=== PATIENT | female | born 1990 | race American Indian/Alaskan Native ===

== ENCOUNTER 2016-08-19 00:45 | Emergency (ER) | payer SELFPAY ==
[2016-08-19 01:12] VITALS: BP 130/89
== END 2016-08-19 05:40 | disposition left against medical advice (07) ==
LOC: ED 00:45
DX: T78.40XA Allergy, unspecified, initial encounter (principal); Z53.21 Procedure and treatment not carried out due to patient leaving prior to being seen by health care provider

== ENCOUNTER 2018-01-31 07:59 | Emergency (ER) | payer OTHER ==
[2018-01-31 09:08] VITALS: BP 128/78
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
[2018-01-31] MEDS ORDERED: TYLENOL PO ONE (11:06)
[2018-01-31 12:20] LABS: HCG Qualitative,Urine Negative (Negative)
--- NOTE | 2018-01-31 15:00 | Cat Scan Report ---
CT HEAD WITHOUT CONTRAST: HISTORY: Trauma, headache. TECHNIQUE: Sequential 2.5mm CT images. COMPARISON: none. FINDINGS: Cerebral Parenchyma: Within normal limits. Cerebellum: Within normal limits. Brainstem: Within normal limits. Ventricles: Normal. Sella: Normal. Extra-axial spaces: Normal. Basal Cisterns: Normal. Intracranial Hemorrhage: None. Midline Shift: None. Calvarium: Normal. Sinuses: Normal. Mastoid Air Cells: Normal. Visualized Orbits: Normal. IMPRESSION: Cranial CT scan within normal limits.
== END 2018-01-31 15:14 | disposition home or self-care (01) ==
LOC: ED 07:59
DX: S09.90XA Unspecified injury of head, initial encounter (principal); V89.2XXA Person injured in unspecified motor-vehicle accident, traffic, initial encounter; Y93.89 Activity, other specified; Y92.411 Interstate highway as the place of occurrence of the external cause; Y99.8 Other external cause status
CPT/HCPCS: 70450; 81025; 99284

== ENCOUNTER 2018-05-18 10:29 | Emergency (ER) | payer SELFPAY ==
--- NOTE | 2018-05-18 11:47 | Emergency Department Report ---
ED Female HPI - General Chief complaint: Vaginal Bleeding Stated complaint: /SPOTTING Time Seen by Provider: 05/18/18 11:22 Source: patient Mode of arrival: Ambulatory Limitations: No Limitations - History of Present Illness Initial comments: 27-year-old 003 who returns to the ED for a period level seen 3 days ago here in the ED stated that she saw some spotting vaginally that started today. Patient states because she has not followed up with [employer] as refers she return to the ED. She denies abdominal pelvic pain. She denies bright heavy vaginal bleeding 6 weeks spotting and seen when wiped. Complaint: vaginal bleeding - Related Data Previous Rx's Medication Instructions Recorded Last Taken Type Ondansetron [Zofran] 4 mg PO Q6HR PRN #12 tablet 08/27/13 Unknown Rx traMADol [Ultram 50 MG tab] 50 mg PO Q4HR PRN #12 tablet 08/27/13 Unknown Rx Amoxicillin [Trimox CAP] 500 mg PO Q8H #30 capsule 10/19/15 Unknown Rx Ibuprofen 600 mg PO TID PRN #30 tablet 01/31/18 Unknown Rx Vit-Fe Fumar-FA [ 1 tab PO QDAY #30 tablet 05/13/18 Unknown Rx Vitamin] Acetaminophen/Codeine [Tylenol 1 tab PO Q6H #10 tab 05/18/18 Unknown Rx /Codeine # 3 tab] Allergies Allergy/AdvReac Type Severity Reaction Status Date / Time No Known Allergies Allergy Verified 10/18/15 21:04 ED Review of Systems ROS: Stated complaint: /SPOTTING Other details as noted in HPI Constitutional: denies: chills, fever Eyes: denies: eye pain, eye discharge, vision change ENT: denies: ear pain, throat pain Respiratory: denies: cough, shortness of breath, wheezing Cardiovascular: denies: chest pain, palpitations Endocrine: no symptoms reported Gastrointestinal: denies: abdominal pain, nausea, diarrhea Genitourinary: denies: urgency, dysuria, discharge Musculoskeletal: denies: back pain, joint swelling, arthralgia Skin: denies: rash, lesions Neurological: denies: headache, weakness, paresthesias Psychiatric: denies: anxiety, depression Hematological/Lymphatic: denies: easy bleeding, easy bruising ED Past Medical Hx - Past Medical History Hx Hypertension: No Hx Congestive Heart Failure: No Hx Diabetes: No Hx Deep Vein Thrombosis: No Hx Renal Disease: No Hx Sickle Cell Disease: No Hx Seizures: No Hx Asthma: No Hx COPD: No Hx HIV: No Additional medical history: "low iron"-with - Surgical History Past Surgical History?: No - Social History Smoking Status: Never Smoker Substance Use Type: None - Medications Home Medications: Home Medications Medication Instructions Recorded Confirmed Last Taken Type Ondansetron [Zofran] 4 mg PO Q6HR PRN #12 tablet 08/27/13 Unknown Rx traMADol [Ultram 50 MG tab] 50 mg PO Q4HR PRN #12 tablet 08/27/13 Unknown Rx Amoxicillin [Trimox CAP] 500 mg PO Q8H #30 capsule 10/19/15 Unknown Rx Ibuprofen 600 mg PO TID PRN #30 tablet 01/31/18 Unknown Rx Vit-Fe Fumar-FA [ 1 tab PO QDAY #30 tablet 05/13/18 Unknown Rx Vitamin] Acetaminophen/Codeine [Tylenol 1 tab PO Q6H #10 tab 05/18/18 Unknown Rx /Codeine # 3 tab] ED Physical Exam - General Limitations: No Limitations General appearance: alert, in no apparent distress - Head Head exam: Present: atraumatic, normocephalic - Eye Eye exam: Present: normal appearance - ENT ENT exam: Present: mucous membranes moist - Neck Neck exam: Present: normal inspection - Respiratory Respiratory exam: Present: normal lung sounds bilaterally. Absent: respiratory distress - Cardiovascular Cardiovascular Exam: Present: regular rate, normal rhythm. Absent: systolic murmur, diastolic murmur, rubs, gallop - GI/Abdominal GI/Abdominal exam: Present: soft, normal bowel sounds - Extremities Exam Extremities exam: Present: normal inspection - Back Exam Back exam: Present: normal inspection - Neurological Exam Neurological exam: Present: alert, oriented X3 - Psychiatric Psychiatric exam: Present: normal affect, normal mood - Skin Skin exam: Present: warm, dry, intact, normal color. Absent: rash ED Course Vital Signs 05/18/18 05/18/18 05/18/18 10:49 14:47 19:25 Temperature 98 F 98.5 F Pulse Rate 77 89 Respiratory 18 18 16 Rate Blood Pressure 120/80 Blood Pressure 117/79 [Left] O2 Sat by Pulse 100 99 99 Oximetry 01/02/19 19:26 Temperature Pulse Rate Respiratory 15 Rate Blood Pressure Blood Pressure [Left] O2 Sat by Pulse Oximetry ED Medical Decision Making - Lab Data Result diagrams: 05/18/18 20:01 - Radiology Data Radiology results: report reviewed, image reviewed FINAL REPORT EXAM: US OB TRANSVAGINAL HISTORY: vag bleeding COMPARISON: None. TECHNIQUE: Transvaginal obstetric ultrasound was performed FINDINGS: The uterus measures 11.7 x 5.6 x 8 centimeters. There is a single live intrauterine with crown-rump length of 0.23 centimeters, corresponding to a gestational age of 5 weeks, 5 days, with estimated date of delivery of 01/13/2019. heart rate is somewhat low at 85 beats per minute. The right ovary measures 4 x 1.8 x 2.7 centimeters and is normal in morphology. The left ovary measures 3.3 x 1.8 x 2.1 centimeters. There is a heterogeneous 1.4 x 1 x 1.4 centimeter complex cystic area that may represent a corpus luteum cyst. IMPRESSION: Single live intrauterine with gestational age by ultrasound of 5 weeks, 5 days, with estimated date of delivery of 01/13/2019. heart rate is somewhat low at 85 beats per minute. Recommend clinical correlation and ultrasound follow-up as clinically indicated. Likely corpus luteum cyst within the left ovary. Transcribed By: LUKE Dictated By: JACQUELINE PÉREZ MD Electronically Authenticated By: JACQUELINE PÉREZ MD Signed Date/Time: 05/18/18 5338 - Medical Decision Making 27-year-old female presents with a inevitable . Patient's last quantitative level was 30,001 4 days ago, today her level is 20,500. CBC, type and screen ordered. Initially based on last menstrual period of February patient should be measuring about 11 weeks. Patient did state that she had had 2 ultrasounds a week apart that shows 6 weeks gestation with no heartbeat. Today's ultrasound shows as reported above Dr. Cesar contacted regarding this patient. Dr. Cesar states outpatient follow-up at her office. Discussed with patient to return back to the ED if vaginal bleeding occurs that she should return to ED immediately. Patient understands all instructions given. Patient will follow-up with Dr. Cesar's office tomorrow. Critical care attestation.: If time is entered above; I have spent that time in minutes in the direct care of this critically ill patient, excluding procedure time. ED Disposition Clinical Impression: Inevitable spontaneous Disposition: DC-01 TO HOME OR SELFCARE Is pt being admited?: No Does the pt Need Aspirin: No Condition: Stable Instructions: Spontaneous Miscarriage (ED) Additional Instructions: Make sure to follow up with the [employer] Dr. Cesar as discussed. If you start bleeding profusely please return to the ED immediately. If you have any worsening symptoms or develop new symptoms please return to ED immediately. Prescriptions: Acetaminophen/Codeine [Tylenol /Codeine # 3 tab] 1 tab PO Q6H #10 tab Referrals: PRIMARY CAREMD [Primary Care Provider] - 3-5 Days [facility] [Staff Physician] - 3-5 Days Forms: Work/School Release Form(ED) Time of Disposition: 18:39
[2018-05-18 12:12] LABS: Bacteria,Urine 1+ /HPF (Negative); Bilirubin,Urine NEG (Negative); Blood,Urine MOD (Negative); Color,Urine Yellow (Yellow); Mucus,Urine 2+ /HPF; Protein,Urine <15 mg/dL mg/dL (Negative); Urobilinogen,Urine < 2.0 mg/dL (<2.0)
--- NOTE | 2018-05-18 16:38 | Ultrasound Report ---
FINAL REPORT EXAM: US OB TRANSVAGINAL HISTORY: vag bleeding COMPARISON: None. TECHNIQUE: Transvaginal obstetric ultrasound was performed FINDINGS: The uterus measures 11.7 x 5.6 x 8 centimeters. There is a single live intrauterine with crown-rump length of 0.23 centimeters, correspondi ng to a gestational age of 5 weeks, 5 days, with estimated date of delivery of 01/13/2019. heart rate is somewhat low at 85 beats per minute. The right ovary measures 4 x 1.8 x 2.7 centimeters and is normal in morphology. The left ovary measures 3.3 x 1.8 x 2.1 centimeters. There is a heterogeneous 1.4 x 1 x 1.4 centimete r complex cystic area that may represent a corpus luteum cyst. IMPRESSION: Single live intrauterine with gestational age by ultrasound of 5 weeks, 5 days, with estima hortencia date of delivery of 01/13/2019. heart rate is somewhat low at 85 beats per minute. Recommend clinical correlation and ultrasoun d follow-up as clinically indicated. Likely corpus luteum cyst within the left ovary.
--- NOTE | 2018-05-18 16:40 | Ultrasound Report ---
FINAL REPORT EXAM: US OB <= 14 WEEKS FETUS HISTORY: vag bleeding COMPARISON: None. TECHNIQUE: Transabdominal obstetric imaging was performed. FINDINGS: The uterus measures 11.7 x 5.6 x 8 centimeters. There is a single live intrauterine with crown-rump length of 0.23 centimeters, correspondi ng to a gestational age of 5 weeks, 5 days, with estimated date of delivery of 01/13/2019. heart rate is somewhat low at 85 beats per minute. The right ovary measures 4 x 1.8 x 2.7 centimeters and is normal in morphology. The left ovary measures 3.3 x 1.8 x 2.1 centimeters. There is a heterogeneous 1.4 x 1 x 1.4 centimete r complex cystic area that may represent a corpus luteum cyst. IMPRESSION: Single live intrauterine with gestational age by ultrasound of 5 weeks, 5 days, with estima hortencia date of delivery of 01/13/2019. heart rate is somewhat low at 85 beats per minute. Recommend clinical correlation and ultrasoun d follow-up as clinically indicated. Likely corpus luteum cyst within the left ovary.
[2018-05-18 19:26] VITALS: BP 117/79
[2018-05-18 20:16] LABS: Hematocrit 34.5 % (30.3-42.9); Hemoglobin 11.4 gm/dl (10.1-14.3); Mean Corpuscular HGB Conc 33 % (30-34); Mean Corpuscular Volume 90 fl (79-97); Platelet Count 261 K/mm3 (140-440); Red Blood Count 3.84 M/mm3 (3.65-5.03)
== END 2018-05-18 20:13 | disposition home or self-care (01) ==
LOC: ED 10:29
DX: O03.9 Complete or unspecified spontaneous abortion without complication (principal); Z3A.01 Less than 8 weeks gestation of pregnancy
CPT/HCPCS: 36415; 76801; 76817; 81001; 84702; 85027; 86850; 86900; 86901

== ENCOUNTER 2018-05-22 21:14 | Inpatient (IN) | payer SELFPAY ==
[2018-05-22 22:18] LABS: Basophils % (Auto) 0.3 % (0.0-1.8); Eosinophils # (Auto) 0.2 K/mm3 (0.0-0.4); Eosinophils % (Auto) 1.7 % (0.0-4.3); Hematocrit 33.3 % (30.3-42.9); Hemoglobin 11.1 gm/dl (10.1-14.3); Lymphocytes # (Auto) 2.8 K/mm3 (1.2-5.4); Lymphocytes % (Auto) 30.5 % (13.4-35.0); Mean Corpuscular HGB Conc 33 % (30-34); Mean Corpuscular Volume 90 fl (79-97); Monocytes # (Auto) 0.5 K/mm3 (0.0-0.8); Monocytes % (Auto) 5.9 % (0.0-7.3); Platelet Count 287 K/mm3 (140-440); Red Blood Count 3.71 M/mm3 (3.65-5.03); Red Cell Distribution Width 14.2 % (13.2-15.2)
[2018-05-22] MEDS ORDERED: NACL 0.9% 1000 ML 1,000 ML IV ONE (22:31)
[2018-05-22] MEDS ORDERED: MORPHINE IV ONE (22:32)
--- NOTE | 2018-05-22 22:33 | Emergency Department Report ---
ED Female HPI - General Chief complaint: Vaginal Bleeding Stated complaint: MISCARRIAGE Time Seen by Provider: 05/22/18 22:08 Source: patient Mode of arrival: Wheelchair Limitations: No Limitations - History of Present Illness Initial comments: This is a 27-year-old female who returns to the ED currently complaining of vaginal bleeding that started earlier today. Patient was seen here 5 days ago for inevitable . Patient states she is evidently miscarried she started bleeding today. She admits abdominal lower pelvic cramping. Patient states that she was not able to follow up with [employer] yet. MD Complaint: vaginal bleeding - Related Data Previous Rx's Medication Instructions Recorded Last Taken Type Vit-Fe Fumar-FA [ 1 tab PO QDAY #30 tablet 05/13/18 Unknown Rx Vitamin] Allergies Allergy/AdvReac Type Severity Reaction Status Date / Time No Known Allergies Allergy Verified 10/18/15 21:04 ED Review of Systems ROS: Stated complaint: MISCARRIAGE Other details as noted in HPI ED Past Medical Hx - Past Medical History Previous Medical History?: Yes Hx Hypertension: No Hx Congestive Heart Failure: No Hx Diabetes: No Hx Deep Vein Thrombosis: No Hx Renal Disease: No Hx Sickle Cell Disease: No Hx Seizures: No Hx Asthma: No Hx COPD: No Hx HIV: No Additional medical history: "low iron"-with - Surgical History Past Surgical History?: No - Social History Smoking Status: Never Smoker Substance Use Type: None - Medications Home Medications: Home Medications Medication Instructions Recorded Confirmed Last Taken Type Vit-Fe Fumar-FA [ 1 tab PO QDAY #30 tablet 05/13/18 05/23/18 Unknown Rx Vitamin] ED Physical Exam - General Limitations: No Limitations General appearance: alert, in no apparent distress - Head Head exam: Present: atraumatic, normocephalic - Eye Eye exam: Present: normal appearance - ENT ENT exam: Present: mucous membranes moist - Neck Neck exam: Present: normal inspection - Respiratory Respiratory exam: Present: normal lung sounds bilaterally. Absent: respiratory distress - Cardiovascular Cardiovascular Exam: Present: regular rate, normal rhythm. Absent: systolic murmur, diastolic murmur, rubs, gallop - GI/Abdominal GI/Abdominal exam: Present: soft, tenderness, normal bowel sounds. Absent: distended, guarding, rebound, rigid, mass (pelvic region) - External exam: Present: bleeding. Absent: erythema, swelling, lesions Speculum exam: Present: vaginal bleeding, tissue - Extremities Exam Extremities exam: Present: normal inspection - Back Exam Back exam: Present: normal inspection - Neurological Exam Neurological exam: Present: alert, oriented X3 - Psychiatric Psychiatric exam: Present: normal affect, normal mood - Skin Skin exam: Present: warm, dry, intact, normal color. Absent: rash ED Course Vital Signs 05/22/18 05/22/18 05/22/18 21:40 23:25 23:36 Temperature 98.4 F Pulse Rate 98 H 78 Respiratory 20 20 20 Rate Blood Pressure 127/85 Blood Pressure 110/73 [Left] O2 Sat by Pulse 100 100 Oximetry 05/22/18 05/23/18 05/23/18 23:40 00:06 01:00 Temperature Pulse Rate 78 Respiratory 20 20 20 Rate Blood Pressure Blood Pressure 92/50 [Left] O2 Sat by Pulse 100 100 Oximetry 05/23/18 05/23/18 05/23/18 01:04 02:00 03:04 Temperature 97.1 F L Pulse Rate 80 113 H Respiratory 20 20 12 Rate Blood Pressure 125/58 Blood Pressure 107/63 [Left] O2 Sat by Pulse 100 100 Oximetry 05/23/18 05/23/18 05/23/18 03:09 03:14 03:19 Temperature Pulse Rate 93 H 90 86 Respiratory 12 13 17 Rate Blood Pressure 114/62 124/68 122/73 Blood Pressure [Left] O2 Sat by Pulse 100 100 100 Oximetry 05/23/18 03:34 Temperature 97.8 F Pulse Rate 88 Respiratory 18 Rate Blood Pressure 115/66 Blood Pressure [Left] O2 Sat by Pulse 100 Oximetry - Reevaluation(s) Reevaluation #1: Patient receiving 2 mg of morphine, 1 L of normal saline. She reports Dermol. Patient has been monitored. She is stable. [employer] Dr. Jack Whatley is paged and consulted 05/23/18 00:36 Reevaluation #2: 05/23/18 02:08 Patient was taken to the OR for dilation and curettage. Patient was stable when she left the ER. - Consultations Consultation #1: Dr. Whatley [employer] is currently evaluating patient. 05/23/18 01:07 05/23/18 01:07 ED Medical Decision Making - Lab Data Result diagrams: 05/22/18 21:55 Critical care attestation.: If time is entered above; I have spent that time in minutes in the direct care of this critically ill patient, excluding procedure time. ED Disposition Clinical Impression: Spontaneous Disposition: DC/TX- [id number] GEN HOSP IP Is pt being admited?: No Does the pt Need Aspirin: No Condition: Stable
[2018-05-22] MEDS ORDERED: ZOFRAN IV ONE (23:27)
[2018-05-22] MEDS ORDERED: ZOFRAN ONE (23:31)
[2018-05-23 00:04] LABS: Bilirubin,Urine NEG (Negative); Blood,Urine LG (Negative); Color,Urine Yellow (Yellow); Mucus,Urine 1+ /HPF; Urobilinogen,Urine < 2.0 mg/dL (<2.0)
[2018-05-23 00:07] LABS: RBC,Urine > 182.0 /HPF (0.0-6.0)
[2018-05-23] MEDS ORDERED: MORPHINE IV ONE (00:43)
[2018-05-23] MEDS ORDERED: NACL 0.9% 1000 ML 1,000 ML IV ONE (01:03)
--- NOTE | 2018-05-23 01:17 | Short Stay Summary ---
Short Stay Documentation Date of service: 05/23/18 Narrative H&P: This is a 27-year-old black female LMP 02/28/18 who returns to the ED currently complaining of heavy vaginal bleeding that started earlier today. She was seen here 5 days ago for inevitable , and is evidently miscarrying now. She admits pelvic cramping. Patient states that she was not able to follow up with [facility] yet. Her H/H is 11.1/33.3 but will need an immediate D&C. - History Principal diagnosis: Incomplete H&P: obtained from office Past Medical History: No medical history Past Surgical History: No surgical history Social history: no significant social history, single - Allergies and Medications Current Medications: Allergies No Known Allergies Allergy (Verified 10/18/15 21:04) Home Medications Medication Instructions Recorded Confirmed Last Taken Type Ondansetron [Zofran] 4 mg PO Q6HR PRN #12 tablet 08/27/13 Unknown Rx traMADol [Ultram 50 MG tab] 50 mg PO Q4HR PRN #12 tablet 08/27/13 Unknown Rx Amoxicillin [Trimox CAP] 500 mg PO Q8H #30 capsule 10/19/15 Unknown Rx Ibuprofen 600 mg PO TID PRN #30 tablet 01/31/18 Unknown Rx Vit-Fe Fumar-FA [ 1 tab PO QDAY #30 tablet 05/13/18 Unknown Rx Vitamin] Acetaminophen/Codeine [Tylenol 1 tab PO Q6H #10 tab 05/18/18 Unknown Rx /Codeine # 3 tab] Active Medications Sodium Chloride (Nacl 0.9% 1000 Ml) 1,000 mls @ 999 mls/hr IV BOLUS ONE Stop: 05/23/18 02:03 - Physical exam General appearance: mild distress Integumentary: no rash HEENT: Atraumatic Lungs: Clear to auscultation Heart: Regular rate Gastrointestinal: normal Female Genitourinary: masses, other (heavy bleeding) Extremities: no ischemia Neurological: Normal speech - Brief post op/procedure progress note Date of procedure: 05/23/18 Pre-op diagnosis: Incomplete Post-op diagnosis: same Procedure: D&C Anesthesia: GETA Findings: An 8-10 week size uterus scant amounts of problems of conception. Surgeon: YOKO RUFFIN Estimated blood loss: minimal (300mls in the ER) Pathology: list (POC) Specimen disposition: to lab Condition: stable - Hospital course Hospital course: Unremarkable. Post Op H/H was 7.8/23.5 and bleeding has resolved. - Disposition Condition at discharge: Good Disposition: DC-01 TO HOME OR SELFCARE - Discharge Diagnoses (1) Incomplete Status: Resolved Short Stay Discharge Plan Activity: no restrictions Diet: regular Follow up with: PRIMARY CAREMD [Primary Care Provider] - 3-5 Days YOKO RUFFIN MD [Staff Physician] - 14 Days VIOLET CESAR [Staff Physician] - 14 Days Prescriptions: Ferrous Sulfate [Feosol 325 MG tab] 325 mg PO BID #60 tablet Ibuprofen [Motrin 600 MG tab] 600 mg PO Q6HR #30 tablet Methylergonovine [Methergine] 0.2 mg PO Q8HR #6 tablet
[2018-05-23] MEDS ORDERED: DIPRIVAN 10 MG/ML IV ONE (01:48)
[2018-05-23] MEDS ORDERED: SUBLIMAZE ONE (01:49)
--- NOTE | 2018-05-23 01:51 | Anesthesia Consultation ---
Anesthesia Consult and Med Hx - Airway Anesthetic Teeth Evaluation: Good ROM Head & Neck: Adequate Mental/Hyoid Distance: Adequate Mallampati Class: Class II Intubation Access Assessment: Probably Good - Pulmonary Exam CTA: Yes - Cardiac Exam Cardiac Exam: No Murmur - Pre-Operative Health Status ASA Pre-Surgery Classification: ASA2, Emergency Proposed Anesthetic Plan: General - Pulmonary Hx Smoking: No Hx Asthma: No Hx Respiratory Symptoms: No SOB: No COPD: No Home Oxygen Therapy: No Hx Pneumonia: No Hx Sleep Apnea: No - Cardiovascular System Hx Hypertension: No Hx Coronary Artery Disease: No Hx Heart Attack/AMI: No Hx Angina: No Hx Percutaneous Transluminal Coronary Angioplasty (PTCA): No Hx Cardia Arrhythmia: No Hx Pacemaker: No Hx Internal Defibrillator: No Hx Valvular Heart Disease: No Hx Heart Murmur: No Hx Peripheral Vascular Disease: No - Central Nervous System Hx Neuromuscular Disorder: No Hx Seizures: No CVA: No Hx Back Pain: No Hx Psychiatric Problems: No - Gastrointestinal Hx Ulcer: No Hx Gastroesophageal Reflux Disease: No - Endocrine Hx Renal Disease: No Hx End Stage Renal Disease: No Hx Cirrhosis: No Hx Liver Disease: No Hx Insulin Dependent Diabetes: No Hx Non-Insulin Dependent Diabetes: No Hx Thyroid Disease: No Hx Hypothyroidism: No Hx Hyperthyroidism: No - Hematic Hx Anemia: No Hx Sickle Cell Disease: No - Other Systems Hx Alcohol Use: No Hx Substance Use: No Hx Cancer: No Hx Obesity: No
--- NOTE | 2018-05-23 01:52 | Anesthesia Day of Surgery ---
Anesthesia Day of Surgery - Day of Surgery Patient Examined: Yes Patient H&P Reviewed: Yes Patient is NPO: No (food at 1930, sip of lemonade at 0100) Beta Blockers: No Cardiac Clearance: No Pulmonary Clearance: No Chandler's Test: N/A
[2018-05-23] MEDS ORDERED: PHENERGAN PR PRN ×2 (01:53→04:57)
[2018-05-23] MEDS ORDERED: MORPHINE IV PRN (01:53)
[2018-05-23] MEDS ORDERED: XYLOCAINE MPF 2% ONE (01:59)
[2018-05-23] MEDS ORDERED: QUELICIN ONE (01:59)
[2018-05-23] MEDS ORDERED: ZOFRAN ONE (01:59)
[2018-05-23] MEDS ORDERED: DECADRON ONE (01:59)
[2018-05-23] MEDS ORDERED: ANCEF/STERILE WATER 2 GM/20 ML 2 GM/20 ML SYRINGE IV NR (02:00)
[2018-05-23] MEDS ORDERED: NACL 0.9% 1000 ML 1,000 ML ONE (02:24)
[2018-05-23] MEDS ORDERED: VERSED ONE (02:26)
[2018-05-23] MEDS ORDERED: TORADOL ONE (02:52)
--- NOTE | 2018-05-23 02:55 | Operative Report ---
Operative Report Operative Report: PREOPERATIVE DIAGNOSIS: Incomplete POSTOPERATIVE DIAGNOSIS: Same OPERATIVE PROCEDURE: Dilatation and curettage. SURGEON: Jack Whatlye MD ANESTHESIA: Gen. endotracheal intubation ANESTHESIOLOGIST: Dr. Garcia ESTIMATED BLOOD LOSS: 50 mL's FINDINGS: An 8-10 week size uterus with scant amounts of products of conception COMPLICATIONS: None COUNTS: Correct x3. PROCEDURE: After the patient was correctly identified as the patient, and after general anesthesia was administered, the patient was prepped and draped in the usual sterile fashion and placed in dorsal lithotomy position. First, the bladder was emptied using a straight catheter. Next, a speculum was placed in the vaginal vault and the anterior lip of the cervix was grasped using a single- tooth tenaculum. The uterus was sounded to 10 cm. The cervical os was sequentially dilated, and a 10 mm vaccurette was used to suction blood and products of conception from the uterine cavity. After all the products of conception were removed, the procedure was considered complete. All instruments were removed from the vagina. The patient tolerated the procedure well and was transferred to the recovery room in stable condition.
[2018-05-23] MEDS ORDERED: LACTATED RINGERS 1,000 ML ONE (03:31)
[2018-05-23] MEDS ORDERED: BENADRYL PO PRN (04:57)
[2018-05-23] MEDS ORDERED: NORCO 5/325 PO PRN (04:57)
[2018-05-23] MEDS ORDERED: MILK OF MAGNESIA PO PRN (04:57)
[2018-05-23] MEDS ORDERED: ZOFRAN IV PRN (04:57)
[2018-05-23] MEDS ORDERED: PHENERGAN PO PRN (04:57)
[2018-05-23] MEDS ORDERED: DULCOLAX PR PRN (04:57)
[2018-05-23] MEDS ORDERED: TYLENOL PO PRN (04:57)
[2018-05-23] MEDS ORDERED: SODIUM CHLORIDE FLUSH SYRINGE 10 ML IV PRN (04:57)
[2018-05-23] MEDS: IBUPROFEN PO SCH ×2 (05:47→16:35)
[2018-05-23] MEDS: METHERGINE PO SCH ×2 (06:10→16:41)
[2018-05-23] MEDS: FEOSOL PO SCH ×2 (09:08→21:23)
[2018-05-23 09:29] LABS: Hematocrit 23.5 % (30.3-42.9); Hemoglobin 7.8 gm/dl (10.1-14.3)
[2018-05-23] MEDS ORDERED: DILAUDID IV PRN (11:24)
[2018-05-23] MEDS ORDERED: LACTATED RINGERS 1,000 ML IV SCH (12:00)
[2018-05-23] MEDS ORDERED: VERSED IV NR (12:00)
--- NOTE | 2018-05-23 14:24 | Post Anesthesia Evaluation ---
- Post Anesthesia Evaluation Patient Participated: Yes Airway Patent: Yes Stable Respiratory Function: Yes Nausea/Vomiting: No Temp > 96.8F: Yes Pain Manageable: Yes Adequeate Hydration: Yes Anesthesia Complications: No
[2018-05-23] MEDS ORDERED: NACL 0.9% 500 ML 500 ML IV NR (16:59)
[2018-05-23] MEDS ORDERED: TYLENOL PO ONE (17:00)
[2018-05-23] MEDS ORDERED: BENADRYL IV ONE (17:00)
[2018-05-23] MEDS ORDERED: NACL 0.9% 500 ML 500 ML IV SCH (21:30)
[2018-05-24] MEDS: IBUPROFEN PO SCH ×3 (00:31→11:55)
[2018-05-24 05:50] LABS: Hematocrit 23.1 % (30.3-42.9); Hemoglobin 7.7 gm/dl (10.1-14.3)
[2018-05-24] MEDS: METHERGINE PO SCH ×2 (05:59)
[2018-05-24] MEDS: FEOSOL PO SCH (11:55)
[2018-05-24 11:58] VITALS: BP 99/49
== END 2018-05-24 13:30 | disposition home or self-care (01) | DRG 770 ==
LOC: ED 21:14 → OB 05-23 03:10
PROVIDERS: ADMIT Obstetrics & Gynecology; ATTEND Obstetrics & Gynecology
PROC: 10D17ZZ Extraction of Products of Conception, Retained, Via Natural or Artificial Opening (ICD-10-PCS; principal; 2018-05-23)
PROC: 30233N1 Transfusion of Nonautologous Red Blood Cells into Peripheral Vein, Percutaneous Approach (ICD-10-PCS; 2018-05-23)
DX: O03.4 Incomplete spontaneous abortion without complication (principal)
CPT/HCPCS: 36415; 36430; 81001; 84703; 85014; 85018; 85025; 86850; 86900; 86901; 86920; 88305; 96361; 96374; 96375; G0378; J0330; J1100; J1200; J1885; J2250; J2270; J2405; J2704; J3010; J7030; J7040; J7120; P9016

== ENCOUNTER 2018-10-17 20:53 | Emergency (ER) | payer SELFPAY ==
[2018-10-17 21:21] VITALS: BP 131/86
--- NOTE | 2018-10-17 21:53 | Emergency Department Report ---
Blank Doc - Documentation Documentation: This is a 28-year-old female that presents with left earache. Exam: Ear has cerumen impaction to left ear. Unable to visualize TM. This initial assessment/diagnostic orders/clinical plan/treatment(s) is/are subject to change based on patient's health status, clinical progression and re- assessment by fellow clinical providers in the ED. Further treatment and workup at subsequent clinical providers discretion. Patient/guardians urged not to elope from the ED as their condition may be serious if not clinically assessed and managed. Initial orders include: 1- Patient sent to [facility] for further evaluation and treatment
== END 2018-10-18 00:15 | disposition left against medical advice (07) ==
LOC: ED 20:53
DX: H92.03 Otalgia, bilateral (principal); Z53.21 Procedure and treatment not carried out due to patient leaving prior to being seen by health care provider

== ENCOUNTER 2019-01-17 12:48 | Emergency (ER) | payer OTHER ==
--- NOTE | 2019-01-17 14:08 | XRay Report ---
RIGHT ELBOW, 3 VIEWS INDICATION: Right elbow pain. COMPARISON: None. IMPRESSION: A large anterior and posterior joint effusion is identified at the right elbow. Bone mi neralization is normal. No acute osseous abnormality or joint pathology is identified. The large join t effusion could indicate internal derangement or occult fracture. Please correlate with the patient and consider further imaging. RIGHT HAND, 3 VIEWS INDICATION: right hand pain. COMPARISON: None. IMPRESSION: No acute osseous or soft tissue abnormality. No significant DJD. Signer Name: Jack Cummings Jr, MD Signed: 01/17/2019 2:03 PM Workstation Name: [id number]
[2019-01-17] MEDS ORDERED: NORCO 5/325 PO ONE (15:06)
--- NOTE | 2019-01-17 16:06 | XRay Report ---
SACRUM AND COCCYX, 3 VIEWS INDICATION: fall, sacral pain. COMPARISON: None. IMPRESSION: No acute osseous or soft tissue abnormality. Normal bone mineralization. The SI joint s are symmetric and unremarkable. Signer Name: Jack Cummings Jr, MD Signed: 01/17/2019 4:02 PM Workstation Name: [id number]
--- NOTE | 2019-01-17 16:38 | Emergency Department Report ---
HPI - General Chief Complaint: Extremity Injury, Upper Time Seen by Provider: 01/17/19 14:01 - HPI HPI: 28-year-old female presents to the emergency department with complaint of pain to the right arm, from the elbow to the hand, as well as some pain to the lower back/sacral area. This occurred after the patient slipped on one of her child's toys and fell onto her back and right arm onto some concrete. She denies hitting her head or any loss of consciousness. She tried some ibuprofen for her symptoms without any relief. No significant past medical history. ED Past Medical Hx - Past Medical History Previous Medical History?: Yes Hx Hypertension: No Hx Heart Attack/AMI: No Hx Congestive Heart Failure: No Hx Diabetes: No Hx Deep Vein Thrombosis: No Hx Liver Disease: No Hx Renal Disease: No Hx Sickle Cell Disease: No Hx Seizures: No Hx Asthma: No Hx COPD: No Hx HIV: No Additional medical history: "low iron"-with - Surgical History Past Surgical History?: Yes Hx Pacemaker: No Hx Internal Defibrillator: No - Social History Smoking Status: Current Some Day Smoker Substance Use Type: None - Medications Home Medications: Home Medications Medication Instructions Recorded Confirmed Last Taken Type Vit-Fe Fumar-FA [ 1 tab PO QDAY #30 tablet 05/13/18 05/23/18 Unknown Rx Vitamin] Ferrous Sulfate [Feosol 325 MG tab] 325 mg PO BID #60 tablet 05/23/18 Unknown Rx Ibuprofen [Motrin 600 MG tab] 600 mg PO Q6HR #30 tablet 05/23/18 Unknown Rx Methylergonovine [Methergine] 0.2 mg PO Q8HR #6 tablet 05/23/18 Unknown Rx HYDROcodone/APAP 5-325 [[place] 1 each PO Q6HR PRN #10 tablet 01/17/19 Unknown Rx 5/325] ED Review of Systems ROS: Stated complaint: RT ARM INJURY Other details as noted in HPI Comment: All other systems reviewed and negative Constitutional: denies: chills, fever Respiratory: denies: cough, shortness of breath Cardiovascular: denies: chest pain, edema Gastrointestinal: denies: abdominal pain Musculoskeletal: back pain, arthralgia, myalgia Neurological: denies: headache, weakness, numbness, paresthesias Physical Exam - Physical Exam Vital Signs: Vital Signs 01/17/19 01/17/19 12:54 15:37 Temperature 98.3 F Pulse Rate 93 H Respiratory 18 17 Rate Blood Pressure 119/85 O2 Sat by Pulse 99 Oximetry Physical Exam: GENERAL: The patient is well-developed. HENT: Normocephalic. Atraumatic. Patient has moist mucous membranes. EYES: Extraocular motions are intact. Pupils equal reactive to light bilatera lly. NECK: Supple. Trachea is midline. CHEST/LUNGS: There is some mild wheezing heard with expiration. A dry cough heard during examination. No tachypnea or accessory muscle use. There is no respiratory distress noted. HEART/CARDIOVASCULAR: Regular. There is mild to moderate tachycardia. There is no murmur. ABDOMEN: Abdomen is soft, nontender. Patient has normal bowel sounds. There is no abdominal distention. SKIN: There is a large area of ecchymosis to the sacral back. NEURO: Awake, alert and oriented. CN II - XII grossly intact. No focal, motor or sensory deficits. MUSCULOSKELETAL: TTP to the right elbow down to the right hand, but no obvious deformity. BACK: No midline thoracic or lumbar TTP, step off or deformity. TTP to the sacral back. ED Course Vital Signs 01/17/19 01/17/19 12:54 15:37 Temperature 98.3 F Pulse Rate 93 H Respiratory 18 17 Rate Blood Pressure 119/85 O2 Sat by Pulse 99 Oximetry ED Medical Decision Making - Radiology Data Radiology results: image reviewed interpreted by me: XR of the hand, forearm, elbow and sacrum do not show any fractures, dislocations or any acute processes. - Medical Decision Making The patient presents with RUE and sacral back pain after slipping on a toy and falling onto her back and right UE. She has ecchymosis to the back. TTP to the RUE but no obvious deformities. Xrays done of all the affected areas and it does not show any fracture, dislocations or any acute processes. She denies hitting head or any LOC. She denies any problems with bowel or bladder, numbness or paresthesias, or any neurological defitis. Low suspicion for any of the emergent back conditions such as cauda equina or cord compression. Given ortho referral and told to see PCP. Will return to ED with any worsening of symptoms or any acute distress. - Differential Diagnosis fracture, muscle spasm, contusion, sprain/strain Critical care attestation.: If time is entered above; I have spent that time in minutes in the direct care of this critically ill patient, excluding procedure time. ED Disposition Clinical Impression: Right arm pain, Sacral back pain Fall Qualifiers: Encounter type: initial encounter Qualified Code(s): W19.XXXA - Unspecified fall, initial encounter Sacral contusion Qualifiers: Encounter type: initial encounter Qualified Code(s): S30.0XXA - Contusion of lower back and pelvis, initial encounter Disposition: TO HOME OR SELFCARE Is pt being admited?: No Condition: Stable Instructions: Contusion in Adults (ED), Arthralgia (ED), Fall Prevention (ED) Additional Instructions: Please follow-up with a primary care physician in the next few days. I'm giving you a referral for a local orthopedist, Dr. Barfield, to follow-up regarding your right upper extremity and low back pains. Return to the emergency Department with any worsening of your symptoms or any acute distress. You have been prescribed a medication that is sedating and therefore should not be taken prior to driving, working, and responsible for children and in no way should be mixed with alcohol of any quantity. Prescriptions: HYDROcodone/APAP 5-325 [[place] 5/325] 1 each PO Q6HR PRN #10 tablet PRN Reason: Pain Referrals: ZAINAB BARFIELD MD [Staff Physician] - 2-3 Days [facility] [Outside] - 2-3 Days Forms: Accompanied Note, Work/School Release Form(ED) Time of Disposition: 16:38
[2019-01-17 16:53] VITALS: BP 110/71
== END 2019-01-17 16:51 | disposition home or self-care (01) ==
LOC: ED 12:48
DX: S30.0XXA Contusion of lower back and pelvis, initial encounter (principal); M54.40 Lumbago with sciatica, unspecified side; M79.601 Pain in right arm; F17.200 Nicotine dependence, unspecified, uncomplicated; W01.198A Fall on same level from slipping, tripping and stumbling with subsequent striking against other object, initial encounter; Y93.89 Activity, other specified; Y92.89 Other specified places as the place of occurrence of the external cause; Y99.8 Other external cause status
CPT/HCPCS: 72220; 99284

== ENCOUNTER 2021-08-31 11:57 | Emergency (ER) | payer BC, OTHER ==
[2021-08-31 13:10] LABS: Bacteria,Urine 1+ /HPF (Negative); Bilirubin,Urine NEG (Negative); Blood,Urine NEG (Negative); Color,Urine Yellow (Yellow); Mucus,Urine FEW /HPF; Protein,Urine <15 mg/dL mg/dL (Negative); Urobilinogen,Urine < 2.0 mg/dL (<2.0)
[2021-08-31 13:12] LABS: HCG Qualitative,Urine Positive (Negative)
[2021-08-31] MEDS ORDERED: SODIUM CHLORIDE 0.9% 1000 ML 1,000 ML IV ONE (13:23)
[2021-08-31] MEDS ORDERED: METOCLOPRAMIDE 10 MG/2 ML INJ IV ONE (13:23)
[2021-08-31 15:12] LABS: Basophils % (Auto) 0.4 % (0.0-1.8); Eosinophils # (Auto) 0.1 K/mm3 (0.0-0.4); Eosinophils % (Auto) 0.8 % (0.0-4.3); Hematocrit 30.9 % (30.3-42.9); Hemoglobin 10.4 gm/dl (10.1-14.3); Lymphocytes % (Auto) 22.9 % (13.4-35.0); Mean Corpuscular HGB Conc 34 % (30-34); Mean Corpuscular Volume 92 fl (79-97); Monocytes # (Auto) 0.5 K/mm3 (0.0-0.8); Monocytes % (Auto) 6.1 % (0.0-7.3); Platelet Count 240 K/mm3 (140-440); Red Blood Count 3.35 M/mm3 (3.65-5.03); Red Cell Distribution Width 13.5 % (13.2-15.2)
--- NOTE | 2021-08-31 15:26 | Emergency Department Report ---
ED N/V/D HPI - General Chief complaint: Nausea/Vomiting/Diarrhea Stated complaint: 7 WEEKS PREG/VOMITING Time Seen by Provider: 08/31/21 13:17 Source: patient Mode of arrival: Ambulatory Limitations: No Limitations - History of Present Illness Initial comments: This is a 31-year-old female who is 7 weeks nontoxic, well nourished in appearance, no acute signs of distress presents to the ED with c/o of nausea and vomiting several days. Patient denies any vaginal bleeding. Denies any vaginal discharge. Patient describes vomiting as food content. Patient denies any abdominal pain, pelvic pain, chest pain, short of breath, fever, chills, headache, stiff neck, numbness or tingling. Patient denies any diarrhea or constipation. Denies any blood in stool. Patient denies any recent travels. Patient denies any drug allergies significant past medical history. MD complaint: nausea, vomiting -: days(s) Description of Vomiting: food contents Associated Abdominal Pain: No Pain Scale: 0 Improves with: none Worsens with: none Associated Symptoms: nausea/vomiting. denies: myalgias, chest pain, cough, diaphoresis, fever/chills, headaches, loss of appetite, malaise, rash, dysuria, shortness of breath, syncope, weakness - Related Data Previous Rx's Medication Instructions Recorded Last Taken Type Vit-Fe Fumar-FA [ 1 tab PO QDAY #30 tablet 05/13/18 Unknown Rx Vitamin] Ferrous Sulfate [Feosol 325 MG tab] 325 mg PO BID #60 tablet 05/23/18 Unknown Rx Ibuprofen [Motrin 600 MG tab] 600 mg PO Q6HR #30 tablet 05/23/18 Unknown Rx Methylergonovine [Methergine] 0.2 mg PO Q8HR #6 tablet 05/23/18 Unknown Rx HYDROcodone/APAP 5-325 [[place] 1 each PO Q6HR PRN #10 tablet 01/17/19 Unknown Rx 5/325] Metoclopramide [Reglan] 10 mg PO BID PRN #12 tab 08/31/21 Unknown Rx 21/Iron Fu/Folic Acid 1 each PO DAILY #30 tab 08/31/21 Unknown Rx [ Complete Caplet] Allergies Allergy/AdvReac Type Severity Reaction Status Date / Time No Known Allergies Allergy Verified 06/03/16 21:04 ED Review of Systems ROS: Stated complaint: 7 WEEKS PREG/VOMITING Other details as noted in HPI Comment: All other systems reviewed and negative Constitutional: denies: chills, fever Eyes: denies: eye pain, eye discharge, vision change ENT: denies: ear pain, throat pain Respiratory: denies: cough, shortness of breath, wheezing Cardiovascular: denies: chest pain, palpitations Endocrine: no symptoms reported Gastrointestinal: nausea, vomiting. denies: abdominal pain, diarrhea, cons tipation, hematemesis, melena, hematochezia Genitourinary: denies: urgency, dysuria, discharge Musculoskeletal: denies: back pain, joint swelling, arthralgia Skin: denies: rash, lesions Neurological: denies: headache, weakness, paresthesias Psychiatric: denies: anxiety, depression Hematological/Lymphatic: denies: easy bleeding, easy bruising ED Past Medical Hx - Past Medical History Hx Hypertension: No Hx Heart Attack/AMI: No Hx Congestive Heart Failure: No Hx Diabetes: No Hx Deep Vein Thrombosis: No Hx Liver Disease: No Hx Renal Disease: No Hx Sickle Cell Disease: No Hx Seizures: No Hx Asthma: No Hx COPD: No Hx HIV: No Additional medical history: "low iron"-with - Surgical History Hx Pacemaker: No Hx Internal Defibrillator: No - Social History Smoking Status: Current Some Day Smoker Substance Use Type: None - Medications Home Medications: Home Medications Medication Instructions Recorded Confirmed Last Taken Type Vit-Fe Fumar-FA [ 1 tab PO QDAY #30 tablet 05/13/18 05/23/18 Unknown Rx Vitamin] Ferrous Sulfate [Feosol 325 MG tab] 325 mg PO BID #60 tablet 05/23/18 Unknown Rx Ibuprofen [Motrin 600 MG tab] 600 mg PO Q6HR #30 tablet 05/23/18 Unknown Rx Methylergonovine [Methergine] 0.2 mg PO Q8HR #6 tablet 05/23/18 Unknown Rx HYDROcodone/APAP 5-325 [[place] 1 each PO Q6HR PRN #10 tablet 01/17/19 Unknown Rx 5/325] Metoclopramide [Reglan] 10 mg PO BID PRN #12 tab 08/31/21 Unknown Rx 21/Iron Fu/Folic Acid 1 each PO DAILY #30 tab 08/31/21 Unknown Rx [ Complete Caplet] ED Physical Exam - General Limitations: No Limitations General appearance: alert, in no apparent distress - Head Head exam: Present: atraumatic, normocephalic - Eye Eye exam: Present: normal appearance - Neck Neck exam: Present: normal inspection, full ROM. Absent: tenderness, meningismus, lymphadenopathy - Respiratory Respiratory exam: Present: normal lung sounds bilaterally. Absent: respiratory distress, wheezes, rales, rhonchi, stridor, chest wall tenderness, accessory muscle use, decreased breath sounds, prolonged expiratory - Cardiovascular Cardiovascular Exam: Present: regular rate, normal rhythm, normal heart sounds. Absent: bradycardia, tachycardia, irregular rhythm, systolic murmur, diastolic murmur, rubs, gallop - GI/Abdominal GI/Abdominal exam: Present: soft, normal bowel sounds. Absent: distended, tenderness, guarding, rebound, rigid, diminished bowel sounds - Extremities Exam Extremities exam: Present: full ROM - Back Exam Back exam: Present: normal inspection, full ROM. Absent: tenderness, CVA tenderness (R), CVA tenderness (L), muscle spasm, paraspinal tenderness, vertebral tenderness, rash noted - Neurological Exam Neurological exam: Present: alert, oriented X3, normal gait - Psychiatric Psychiatric exam: Present: normal affect, normal mood - Skin Skin exam: Present: warm, dry, intact, normal color. Absent: rash ED Course Vital Signs 08/31/21 12:12 Temperature 98.1 F Pulse Rate 68 Respiratory 16 Rate Blood Pressure 133/70 [Left] O2 Sat by Pulse 100 Oximetry - Reevaluation(s) Reevaluation #1: 08/31/21 15:25 Patient is speaking in full sentences with no signs of distress noted. ED Medical Decision Making - Lab Data Result diagrams: 08/31/21 14:32 08/31/21 14:32 - Radiology Data Lab Results 08/31/21 08/31/21 08/31/21 Range/Units 12:32 14:32 14:32 WBC 8.8 (4.5-11.0) K/mm3 RBC 3.35 L (3.65-5.03) M/mm3 Hgb 10.4 (10.1-14.3) gm/dl Hct 30.9 (30.3-42.9) % MCV 92 (79-97) fl MCH 31 (28-32) pg MCHC 34 (30-34) % RDW 13.5 (13.2-15.2) % Plt Count 240 (140-440) K/mm3 Lymph % (Auto) 22.9 (13.4-35.0) % [place] % (Auto) 6.1 (0.0-7.3) % Eos % (Auto) 0.8 (0.0-4.3) % Baso % (Auto) 0.4 (0.0-1.8) % Lymph # (Auto) 2.0 (1.2-5.4) K/mm3 [place] # (Auto) 0.5 (0.0-0.8) K/mm3 Eos # (Auto) 0.1 (0.0-0.4) K/mm3 Baso # (Auto) 0.0 (0.0-0.1) K/mm3 Seg Neutrophils % 69.8 (40.0-70.0) % Seg Neutrophils # 6.1 (1.8-7.7) K/mm3 Sodium 135 L (137-145) mmol/L Potassium 3.2 L (3.6-5.0) mmol/L Chloride 101.7 (98-107) mmol/L Carbon Dioxide 22 (22-30) mmol/L Anion Gap 15 mmol/L BUN 6 L (7-17) mg/dL Creatinine 0.5 L (0.6-1.2) mg/dL Estimated GFR > 60 ml/min BUN/Creatinine Ratio 12 % Glucose 113 H (65-100) mg/dL Calcium 9.0 (8.4-10.2) mg/dL Total Bilirubin 0.20 (0.1-1.2) mg/dL AST 11 (5-40) units/L ALT 10 (7-56) units/L Alkaline Phosphatase 66 (35-129) units/L Total Protein 6.6 (6.3-8.2) g/dL Albumin 4.0 (3.9-5) g/dL Albumin/Globulin Ratio 1.5 % Urine Color Yellow (Yellow) Urine Turbidity Clear (Clear) Urine pH 9.0 H (5.0-7.0) Ur Specific [place] 1.019 (1.003-1.030) Urine Protein <15 mg/dl (Negative) mg/dL Urine Glucose (UA) Neg (Negative) mg/dL Urine Ketones Neg (Negative) mg/dL Urine Blood Neg (Negative) Urine Nitrite Neg (Negative) Urine Bilirubin Neg (Negative) Urine Urobilinogen < 2.0 (<2.0) mg/dL Ur Leukocyte Esterase Neg (Negative) Urine WBC (Auto) 1.0 (0.0-6.0) /HPF Urine RBC (Auto) 1.0 (0.0-6.0) /HPF U Epithel Cells (Auto) 7.0 (0-13.0) /HPF Urine Bacteria (Auto) 1+ (Negative) /HPF Urine Mucus Few /HPF Urine HCG, Qual Positive A (Negative) - Medical Decision Making This is a 31-year-old female that presents with hyperemesis. Patient is stable and was examined by me. There is no abdominal tenderness. Negative signs of s ymptoms of appendicitis, cholecystitis or acute abdomen. Labs obtained. UA obtained. Vital signs are stable prior to discharge. Patient received Reglan and 1L Normal saline in the ED which patient stated symptoms has resovled and subsided. A by mouth challenge has been obtained and patient tolerated well with no nausea vomiting. Patient was also instructed to Follow-up with [facility] doctor in 3-5 days or if symptoms worsen and continue return to emergency room as soon as possible. At time of discharge, the patient does not seem toxic or ill in appearance. No acute signs of distress noted. Patient agrees to discharge treatment plan of care. No further questions noted by the patient. Critical care attestation.: If time is entered above; I have spent that time in minutes in the direct care of this critically ill patient, excluding procedure time. ED Disposition Clinical Impression: Hyperemesis gravidarum Disposition: 01 HOME / SELF CARE / HOMELESS Is pt being admited?: No Does the pt Need Aspirin: No Condition: Stable Instructions: Hyperemesis Gravidarum Additional Instructions: Follow-up with a [facility] doctor in 3-5 days or if symptoms worsen and continue return to emergency room as soon as possible. Prescriptions: 21/Iron Fu/Folic Acid [ Complete Caplet] 1 each PO DAILY #30 tab Metoclopramide [Reglan] 10 mg PO BID PRN #12 tab PRN Reason: Nausea Referrals: ROBYN LUCERO MD [Primary Care Provider] - 3-5 Days [facility] [Referring] - 3-5 Days [facility] [Provider Group] - 3-5 Days [facility] [Provider Group] - 3-5 Days Forms: Work/School Release Form(ED) Time of Disposition: 16:04
[2021-08-31 15:27] LABS: Alanine Aminotransferase 10 units/L (7-56); Blood Urea Nitrogen 6 mg/dL (7-17); Hemolysis Index 1
[2021-08-31 15:35] LABS: BUN/Creatinine Ratio 12
[2021-08-31] MEDS ORDERED: POTASSIUM CHLORIDE ER 20 MEQ TAB PO ONE (16:02)
[2021-08-31 16:23] VITALS: BP 122/78
== END 2021-08-31 16:22 | disposition home or self-care (01) ==
LOC: ED 11:57
DX: O21.0 Mild hyperemesis gravidarum (principal); F17.200 Nicotine dependence, unspecified, uncomplicated; Z3A.01 Less than 8 weeks gestation of pregnancy
CPT/HCPCS: 36415; 80053; 81001; 81025; 85025; 96361; 96374; 99283; J2765; J7030; Q0162